=== PATIENT | female | born 1935 | race Caucasian/White ===

== ENCOUNTER 2017-01-10 10:59 | Emergency (ER) | payer OTHER ==
[~2017-01-10] VITALS: Ht 161.3 cm; Wt 81.6 kg
[~2017-01-10 10:59] MED LIST: ADULT LOW DOSE81 MG PO; CRESTOR40 M2 PO; FAMILY PHARMAC325 MG PO; FISH OIL 1,0001 EACH PO; LIPITOR80 MG PO; LOSARTAN POTAS100 M1 PO; MASON NATURAL2000 IU PO; PERI-COLACE 501 TAB PO; PRILOSEC OTC20 M1 PO; TOPROL XL25 M1 PO; VITAMIN C PURE500 M1 PO
[2017-01-10] MEDS ORDERED: BRILINTA90 M1 PO (11:47)
[2017-01-10] MEDS ORDERED: VALSARTAN320 M1 PO (11:50)
[2017-01-10] MEDS ORDERED: FERROUS SULFAT325 M3 PO (11:51)
[2017-01-10] MEDS ORDERED: CALTRATE 600 +1 EACH PO (11:54)
--- NOTE | 2017-01-10 11:59 | ED HAND/WRIST INJURY COMPLAINT ---
History of Present Illness General Chief Complaint: Hand or Wrist Injury Stated Complaint: HEMATOMA TO R HAND, ?HIT HAND ON SOMETHING Source: patient Exam Limitations: no limitations Vital Signs & Intake/Output Vital Signs & Intake/Output Vital Signs Date Time Temp Pulse Resp B/P Pulse O2 O2 Flow FiO2 Ox Delivery Rate 01/10 1102 97.1 72 18 192/89 96 Room Air Allergies Coded Allergies: NO KNOWN ALLERGIES (01/01/16) Reconcile Medications Aspirin (Adult Low Dose Aspirin EC) 81 MG TABLET.DR 1 TAB PO DAILY HEART HEALTH (Reported) Calcium Carbonate/Vitamin D3 (Caltrate 600 + D Tablet) 600 MG-800 TABLET 1 TAB PO DAILY SUPPLEMENT (Reported) Ferrous Sulfate 325 MG (65 MG IRON) TABLET 1 TAB PO TID SUPPLEMENT (Reported) Losartan Potassium 100 MG TABLET 1 TAB PO DAILY BP (Reported) Metoprolol Succ XL (Toprol XL) 25 MG TAB 1 TAB PO DAILY HEART (Reported) [place]-3 Fatty Acids/Fish Oil (Fish Oil 1,000 MG Capsule) 340 MG-1,000 MG CAPSULE 1 CAP PO DAILY SUPPLEMENT (Reported) Omeprazole Magnesium (Prilosec Otc) 20 MG TABLET.DR 1 TAB PO DAILY ACID REFLUX (Reported) Rosuvastatin Calcium (Crestor) 40 MG TABLET 1 TAB PO QPM CHOLESTEROL ( Reported) Ticagrelor (Brilinta) 90 MG TABLET 1 TAB PO BID BLOOD THINNER (Reported) Valsartan 320 MG TABLET 1 TAB PO DAILY HEART (Reported) Triage Note: PT STATES THAT SHE WAS STARTED ON BRALINTA 2 DAYS AGO, AND THAT TODAY SHE THINKS SHE HIT TOP HER R HAND ON SOMETHING , PT NOTED WITH LARGE HEMATOMA ON TOP OF HAND Triage Nurses Notes Reviewed? yes Occurred: just prior to arrival Timing: single episode today Injury Environment: doctor's office Severity: mild, moderate Method of Injury: HIT HAND WITH 'S BELT BUCKLE HPI: 81 year old female who presents to the ER for chief complaint of left hand swelling. She states she was with her at his doctor's visit and was folding his pants and thinks that the belt buckle may have hit the top of her hand. She denies any pain. The area suddenly became very swollen and tense. She is recently on brilinta after cardiac catheterization last week. Past History Travel History Traveled to [place] past 21 day No Medical History Any Pertinent Medical History? see below for history Neurological: NONE EENT: NONE Cardiovascular: hypertension, hyperlipidemia Respiratory: NONE Gastrointestinal: NONE Hepatic: NONE Renal: NONE Musculoskeletal: NONE Psychiatric: NONE Endocrine: NONE Blood Disorders: NONE Cancer(s): NONE Surgical History Surgical History: non-contributory Psychosocial History What is your primary language Kitt[place] Tobacco Use: Never used ETOH Use: denies use Illicit Drug Use: denies illicit drug use Family History Hx Contributory? No Review of Systems Review of Systems Constitutional: Denies: chills, fever. EENTM: Reports: no symptoms. Respiratory: Denies: cough, short of breath. Cardiovascular: Denies: chest pain, palpitations, peripheral edema. GI: Reports: no symptoms. Genitourinary: Reports: no symptoms. Musculoskeletal: Reports: no symptoms. Skin: Reports: no symptoms. Neurological/Psychological: Reports: no symptoms. Hematologic/Endocrine: Reports: bruising. Denies: bleeding, polyuria, polydipsia. Immunologic/Allergic: Denies: splenectomy. All Other Systems: Reviewed and Negative Physical Exam Physical Exam General Appearance: well developed/nourished, alert, awake, mild distress Head: atraumatic Eyes: Bilateral: PERRL, EOMI. Ears, Nose, Throat: normal pharynx, normal ENT inspection, hearing grossly normal Neck: normal inspection, supple Cardiovascular/Respiratory: normal breath sounds, regular rate/rhythm Back: normal inspection Shoulder Left: normal range of motion, normal inspection Shoulder Right: normal range of motion, normal inspection Elbow Left: normal range of motion, normal inspection Elbow Right: normal range of motion, normal inspection Forearm Left: normal range of motion, normal inspection Forearm Right: normal range of motion, normal inspection Wrist Left: normal range of motion, normal inspection Wrist Right: normal range of motion, BRUISING OVER RIGHT RADIAL CALF SITE, NO HEMATOMA, NO PALPABLE THRILL Hand Left: normal inspection, normal range of motion Hand Right: SWELLING OVER DORSUM OF HAND Neurologic/Tendon: normal sensation, normal motor functions, normal tendon functions Skin: intact, normal color, warm/dry Lymphatic: no anterior cervical more Diagram Hands Back 1) Soft tissue swelling Progress Differential Diagnosis: fracture, hematoma Plan of Care: Iced place over the area of swelling. X-ray ordered. X-ray negative for fracture. Swelling much improved after topical ice administration. Diagnostic Imaging: Viewed by Me: Radiology Read. Discussed w/RAD: Radiology Read. Radiology Impression: PATIENT: WILLIAM LINDSEY PRESENT AGE: 81 PATIENT ACCOUNT NO: [id number] : 36 LOCATION: [facility] ORDERING PHYSICIAN: MADI BAE MD SERVICE DATE: 01/10/17-1206 EXAM TYPE: RAD - XRY -HAND TWO VIEWS R EXAMINATION: XR HAND, RIGHT CLINICAL INFORMATION: Dorsal hematoma to hand. COMPARISON: None TECHNIQUE: AP, lateral, and oblique views of the right hand. FINDINGS: Prominent dorsal soft tissue swelling. No acute fracture or dislocation. Alignment is anatomic. Mild degenerative changes seen throughout the metacarpophalangeal joints and interphalangeal joints. IMPRESSION : Prominent dorsal soft tissue swelling. No acute fracture or malalignment. DICTATED BY: ASAD CARBONE MD DATE/TIME DICTATED:01/10/171249 [employer] HAND:WISAM DATE/TIME TRANSCRIBED:01/10/171249 CONFIDENTIAL, DO NOT COPY WITHOUT APPROPRIATE AUTHORIZATION. <Electronically signed in Other Vendor System> SIGNED BY: ASAD CARBONE MD 01/10/17 1254 Departure Departure Time of Disposition: 1310 Disposition: HOME OR SELF CARE Condition: Stable Clinical Impression Primary Impression: Hematoma Referrals: JOHN GRECO,CECILIO Haque (PCP/Family) Additional Instructions: ICE, REST AND ELEVATE THE RIGHT HAND. CONTACT YOUR CONCRETE LAYER WHO PRESCRIES YOUR BRILINTA. RETURN NEEDED. Departure Forms: Customer Survey General Discharge Information
--- NOTE | 2017-01-10 12:54 | RADIOLOGY REPORT ---
EXAMINATION: XR HAND, RIGHT CLINICAL INFORMATION: Dorsal hematoma to hand. COMPARISON: None TECHNIQUE: AP, lateral, and oblique views of the right hand. FINDINGS: Prominent dorsal soft tissue swelling. No acute fracture or dislocation. Alignment is anatomic. Mild degenerative changes seen throughout the metacarpophalangeal joints and interphalangeal joints. IMPRESSION: Prominent dorsal soft tissue swelling. No acute fracture or malalignment.
[2017-01-10 13:19] VITALS: BP 164/85
== END 2017-01-10 13:20 ==
LOC: ERH 10:59
DX: M79.81 Nontraumatic hematoma of soft tissue (principal)
CPT/HCPCS: 73120-RT